=== PATIENT | male | born 1970 | race African-American/Black ===

== ENCOUNTER 2019-07-06 11:29 | Emergency (ER) | payer MEDICAID ==
[~2019-07-06] VITALS: Ht 180.3 cm; Wt 69.1 kg
[2019-07-06 12:37] VITALS: BP 121/83
== END 2019-07-06 13:42 | disposition home or self-care (01) ==
LOC: ER 11:29
DX: L25.9 Unspecified contact dermatitis, unspecified cause (principal); N50.812 Left testicular pain; N50.811 Right testicular pain
CPT/HCPCS: 76870

== ENCOUNTER 2019-07-12 16:21 | Emergency (ER) | payer MEDICAID ==
[~2019-07-12] VITALS: Ht 180.3 cm; Wt 67.2 kg
[2019-07-12 16:45] VITALS: BP 122/83
== END 2019-07-12 18:09 | disposition home or self-care (01) ==
LOC: ER 16:31
DX: L25.9 Unspecified contact dermatitis, unspecified cause (principal); Z76.0 Encounter for issue of repeat prescription

== ENCOUNTER 2025-03-17 16:00 | Emergency (ER) | payer MEDICAID, SELFPAY ==
[~2025-03-17] VITALS: Ht 180.3 cm; Wt 70.0 kg
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
[2025-03-17] MEDS ORDERED: IBUP-1455 PO (17:31)
[2025-03-17] MEDS ORDERED: GABA-1250 PO (17:31)
[2025-03-17] MEDS: KETOROLAC TROMETH 60MG/2ML VIAL IM ONE (17:49)
[2025-03-17 18:01] VITALS: BP 126/72; PULSE 76; RESP 20; TEMP 98; O2SAT 98
== END 2025-03-17 18:03 | disposition home or self-care (01) ==
LOC: ER 16:07
DX: M50.122 Cervical disc disorder at C5-C6 level with radiculopathy (principal); M50.123 Cervical disc disorder at C6-C7 level with radiculopathy
CPT/HCPCS: 70450; 72125; 96372; 99285; J1885

== ENCOUNTER 2025-03-20 20:00 | Emergency (ER) | payer SELFPAY ==
[~2025-03-20] VITALS: Ht 180.3 cm; Wt 72.6 kg
[~2025-03-20 20:00] MED LIST: GABA-1250 PO; IBUP-1455 PO
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
[2025-03-20] MEDS ORDERED: CYCL-837 PO (22:50)
[2025-03-20 23:58] VITALS: BP 149/88; PULSE 55; RESP 21; TEMP 97.8; O2SAT 98
== END 2025-03-20 23:59 | disposition home or self-care (01) ==
LOC: EDBD 20:00 → ER 20:00
DX: M54.12 Radiculopathy, cervical region (principal); Z79.899 Other long term (current) drug therapy
CPT/HCPCS: 73030; 73090